=== PATIENT | male | born 1965 | race Caucasian/White ===

== ENCOUNTER 2020-04-25 15:20 | Inpatient (IN) | payer OTHER ==
[~2020-04-25] VITALS: Ht 180.3 cm; Wt 145.6 kg
[2020-04-25] MEDS ORDERED: SODIUM CHLORIDE 0.9% 1,000 ML IVB ONE (15:32)
[2020-04-25] MEDS ORDERED: KETOROLAC TROMETH 30 MG/ML 1ML VIAL IV ONE ×2 (15:45→17:45)
[2020-04-25] MEDS ORDERED: ONDANSETRON HCL 4 MG/2 ML VIAL IV ONE (15:45)
[2020-04-25] MEDS ORDERED: MORPHINE SULFATE 4 MG/ML SYR/VIAL IV ONE (15:45)
[2020-04-25 16:13] LABS: Basophils # (auto) 0.1 10 ^3/uL (0-0.2); Basophils % (auto) 0.8 % (0.0-2.0); Eosinophils # (auto) 0.1 10 ^3/uL (0-0.8); Eosinophils % (auto) 0.7 % (0.0-7.0); Hematocrit 44.9 % (41.0-53.0); Hemoglobin 15.1 g/dL (13.5-17.5); Lymphocytes # (auto) 1.3 10 ^3/uL (0.4-5.4); Lymphocytes % (auto) 10.9 % (10.0-50.0); Mean Corpuscular Hemoglobin 30.5 pg (28.0-32.0); Mean Corpuscular Hgb Conc. 33.6 g/dL (32.0-36.0); Mean Corpuscular Volume 90.9 fL (80.0-100.0); Monocytes # (auto) 0.8 10 ^3/uL (0-1.3); Monocytes % (auto) 6.4 % (0.0-12.0); Neutrophils % (auto) 81.2 % (37.0-80.0); Platelet Count (auto) 238 10^3/uL (140-450); Red Blood Cells 4.94 10^6/uL (4.5-5.90); Red Cell Distribution Width 12.6 % (11.8-14.3); White Blood Cell 12.3 10^3/uL (4.4-10.8)
[2020-04-25 16:30] LABS: Calcium 8.7 mg/dL (8.5-10.1); Potassium 3.6 mmol/L (3.5-5.1)
[2020-04-25 16:34] LABS: BUN/Creatinine Ratio 10.7; Bilirubin, Total 0.7 mg/dL (0.2-1.0); Total Protein 7.5 g/dL (6.4-8.2)
[2020-04-25 16:41] LABS: Urine Bacteria FEW /hpf (None Seen); Urine Blood 1+ /uL (Negative); Urine Mucus FEW (None Seen); Urine Specific Gravity 1.027 (1.001-1.035); Urine WBC 10 /hpf (0 - 3)
[2020-04-25] MEDS ORDERED: SODIUM CHLORIDE 0.9% 1,000 ML IV SCH (16:59)
[2020-04-25] MEDS ORDERED: LORazepam 0.5 MG TAB PO PRN (17:00)
[2020-04-25] MEDS ORDERED: MORPHINE SULF INJ 2 MG/ML SYRINGE 1ML IV PRN ×2 (17:00)
[2020-04-25] MEDS ORDERED: cefTRIAXone 1GM/50ML D5W 50 ML IV ONE (17:00)
[2020-04-25] MEDS ORDERED: ONDANSETRON HCL 4 MG/2 ML VIAL IV PRN (17:00)
[2020-04-25] MEDS ORDERED: ALUM & MAG HYDROX-SIMETH LIQ(MAALOX) 30 ML PO PRN (17:00)
[2020-04-25] MEDS ORDERED: NITROGLYCERIN 0.4 MG SL TAB SL PRN (17:00)
[2020-04-25] MEDS ORDERED: ACETAMINOPHEN 325 MG TAB PO PRN (17:00)
[2020-04-25] MEDS ORDERED: DOCUSATE SOD 100 MG CAP PO PRN (17:00)
[2020-04-25 17:59] LABS: Cholesterol 201 mg/dL (< 200); HDL Cholesterol 32 mg/dL (40-59); LDL Cholesterol 138 mg/dL (< 100); Triglycerides 266 mg/dL (< 150)
[2020-04-25 18:27] LABS: Alcohol, Urine < 3.0 mg/dL (0-10); Amphetamine Screen, Urine NEGATIVE (NEGATIVE); Barbiturate Scree,Urine NEGATIVE (NEGATIVE); Benzodiazephine Screen, Urine NEGATIVE (NEGATIVE); Cannabinoid Screen, Urine NEGATIVE (NEGATIVE); Cocaine Screen, Urine NEGATIVE (NEGATIVE); Opiate Scree,Urine NEGATIVE (NEGATIVE); Phencyclidine Screen, Urine NEGATIVE (NEGATIVE)
[2020-04-25] MEDS ORDERED: hydrALAZINE HCL 20 MG/ML VL IV PRN (22:15)
[2020-04-25] MEDS ORDERED: NIFEdipine ER 30 MG TAB PO ONE (22:15)
[2020-04-26] MEDS: SODIUM CHLORIDE 0.9% 1,000 ML IV SCH ×2 (00:13→13:17)
[2020-04-26] MEDS: KETOROLAC TROMETH 30 MG/ML 1ML VIAL IV PRN ×3 (01:14→13:42)
[2020-04-26] MEDS: HYDROcodone-ACET 5/325MG TAB PO PRN ×3 (01:20→23:19)
[2020-04-26 01:30] VITALS: BP 166/92
--- NOTE | 2020-04-26 01:30 | NUR ---
Telemetry admit from ER KI BARNETT admitted to Telemetry unit. Patient oriented to Eden Campos RN primary RN, unit, room, bed, and unit policies regarding patient care and visiting hours. Patient now on continuous telemetry monitoring, tele box #63 and telemetry reading on arrival to unit is NSR . Patient weighed by bedscale and encouraged to call if they need something. All questions and concerns addressed, patient verbalized understanding. Note: patient alert and oriented x 4, follows direction. on room air with even and unlabored respiration, no s/s od distress. Patient denies any problems urinating. Patient ambulates independently with stead gait. Bed in low locked position with side rails up x 2 and call light within reach. Instructed on POC and to call for assistance PRN. will continue care.
[2020-04-26 05:00] VITALS: BP 141/70
--- NOTE | 2020-04-26 07:01 | NUR ---
Closing note patient resting in bed with even and unlabored respirations, no s/s of distress. IVF infusing per orders. Bed in lowest locked position with side rails up x 2 and call light within reach.
--- NOTE | 2020-04-26 08:00 | NUR ---
Received pt resting in bed, call light within reach, pt reports pain on back and abdomen 03/18, pt was given pain medication by night auditor, pt was given heat pads, pt also reported mild nausea, pt refused nausea medication at this time, will continue to monitor pt.
[2020-04-26 09:00] VITALS: BP 145/81
[2020-04-26] MEDS: ASPirin 81 mg TAB PO SCH ×2 (10:00→10:12)
[2020-04-26] MEDS: CITALOPRAM HYDROBR 20 MG TAB PO SCH ×2 (10:00→10:13)
[2020-04-26] MEDS: PANTOPRAZOLE 40 MG/10 ML VIAL INJ IV SCH ×2 (10:00→10:12)
[2020-04-26] MEDS: ENOXAPARIN SOD 40 MG/0.4 ML SYRINGE SC SCH ×2 (10:00→10:14)
[2020-04-26] MEDS: CEFTRIAXONE SODIUM 2 GM in D5W 5% 50 ML IV SCH (10:12)
[2020-04-26] MEDS: NIFEdipine ER 30 MG TAB PO SCH (10:15)
[2020-04-26] MEDS ORDERED: MANNITOL FTV 25% 12.5 GM/50 ML 50 ML IV ONE (12:30)
[2020-04-26] MEDS ORDERED: SODIUM CHLORIDE 0.9% 1,000 ML IV ONE (12:30)
[2020-04-26 12:48] VITALS: BP 145/74
[2020-04-26 14:54] LABS: BUN/Creatinine Ratio 11.7; Calcium 8.4 mg/dL (8.5-10.1); Potassium 3.9 mmol/L (3.5-5.1)
--- NOTE | 2020-04-26 16:12 | NUR ---
assessment Patient is a 54 year old male who is alert and oriented. Patients cognitive abilities are intact. Prior to admission patient lived home with family and functioned independently. Patient informed me he is able to care for his own ADLs. Per patient he will return home to his prior living arrangements post discharge and family will transport him home. I informed patient of his consult for advanced directive. Patient informed me he never requested advanced directive. I did provide patient with directive. Patient accepted. I informed patient he has a right to speak to a social director regarding all care. I informed patient he has a right to participate in any and all discharge planning. Patient does not have a POA and advanced directive. I have offered patient information on POA and advanced directives. I informed the patient the advantages and benefits of having an Advanced Directive. Patient verbalized understanding and agreed to discharge plan. Addendum: 04/26/20 at 1618 by Ashlee Nicholas Amended: Links added.
[2020-04-26 16:58] VITALS: BP 129/72
[2020-04-26] MEDS: TAMSULOSIN HYDROCHLORIDE 0.4 MG CAP PO SCH (17:19)
--- NOTE | 2020-04-26 19:30 | NUR ---
Opening Shift Note Assumed care of patient, awake and alert. No S/S of distress/SOB or pain. Discussed Plan of care. Instructed on POC and to call for assist PRN, will continue to monitor for changes Q1hr and PRN. Patient verbalized understanding.
[2020-04-26 22:00] VITALS: BP 120/61
[2020-04-26] MEDS: ATORVASTATIN 20 MG TAB PO SCH (22:13)
[2020-04-27] MEDS: SODIUM CHLORIDE 0.9% 1,000 ML IV SCH (03:28)
[2020-04-27 05:00] VITALS: BP 131/73
[2020-04-27] MEDS: HYDROcodone-ACET 5/325MG TAB PO PRN (06:10)
--- NOTE | 2020-04-27 08:00 | NUR ---
Received pt resting in bed, call light within reach, pt reports mild rt lower abdominal and rt lower back pain 3/, pt refused pain medication at this time, will continue to monitor pt.
[2020-04-27 09:00] VITALS: BP 131/73
--- NOTE | 2020-04-27 09:00 | NUR ---
Consuelo Kelley, KEVIN / urology at bed side to see pt, discussed the plan of care with pt.
[2020-04-27] MEDS: PANTOPRAZOLE 40 MG/10 ML VIAL INJ IV SCH (09:43)
[2020-04-27] MEDS: CEFTRIAXONE SODIUM 2 GM in D5W 5% 50 ML IV SCH (09:44)
[2020-04-27] MEDS: ENOXAPARIN SOD 40 MG/0.4 ML SYRINGE SC SCH (09:44)
[2020-04-27] MEDS: CITALOPRAM HYDROBR 20 MG TAB PO SCH (09:44)
[2020-04-27] MEDS: ASPirin 81 mg TAB PO SCH (09:45)
[2020-04-27] MEDS: NIFEdipine ER 30 MG TAB PO SCH (09:45)
[2020-04-27 11:49] LABS: BUN/Creatinine Ratio 11.7; Calcium 8.3 mg/dL (8.5-10.1); Potassium 3.9 mmol/L (3.5-5.1)
[2020-04-27 12:52] VITALS: BP 116/69
--- NOTE | 2020-04-27 13:00 | NUR ---
Dr. Mccallum at bed side to see pt, doctor discussed the plan of care with pt.
[2020-04-27] MEDS: SOD CHL 0.9%/ KCL 20MEQ 1,000 ML IV SCH (14:42)
[2020-04-27 16:51] VITALS: BP 135/83
[2020-04-27] MEDS: TAMSULOSIN HYDROCHLORIDE 0.4 MG CAP PO SCH (17:29)
[2020-04-27 22:00] VITALS: BP 156/97
[2020-04-27] MEDS: ATORVASTATIN 20 MG TAB PO SCH (22:00)
[2020-04-28] MEDS: SOD CHL 0.9%/ KCL 20MEQ 1,000 ML IV SCH (02:35)
[2020-04-28 05:49] VITALS: BP 135/65
[2020-04-28 06:31] LABS: Calcium 8.6 mg/dL (8.5-10.1); Potassium 3.8 mmol/L (3.5-5.1)
[2020-04-28 06:33] LABS: BUN/Creatinine Ratio 12.1
[2020-04-28 07:14] LABS: INR 1.08 (0.9-1.15); Partial Thromboplastin Time 29.2 sec (23.0-31.2)
[2020-04-28 09:00] VITALS: BP 166/91
[2020-04-28] MEDS: PANTOPRAZOLE 40 MG/10 ML VIAL INJ IV SCH (09:14)
[2020-04-28] MEDS: CITALOPRAM HYDROBR 20 MG TAB PO SCH (09:15)
[2020-04-28] MEDS: ASPirin 81 mg TAB PO SCH (09:15)
[2020-04-28] MEDS: CEFTRIAXONE SODIUM 2 GM in D5W 5% 50 ML IV SCH (09:15)
[2020-04-28] MEDS: NIFEdipine ER 30 MG TAB PO SCH (09:16)
[2020-04-28] MEDS: ENOXAPARIN SOD 40 MG/0.4 ML SYRINGE SC SCH (09:16)
[2020-04-28] MEDS ORDERED: TAM04C PO (10:53)
[2020-04-28 12:03] VITALS: BP 142/80
--- NOTE | 2020-04-28 13:31 | NUR ---
Discharge instructions given as ordered. Encourage to follow up with Urologist Dr. Luis as instructed. New prescription given to pt. All questions and concerns addressed. Patient verbalized understanding. Medication reconciliation form completed and copy given to patient. IV removed with catheter intact, pressure dressing applied. Patient taken to vehicle via wheelchair with all personal belongings, accompanied by staff and family member. No distress noted at time of departure.
[2020-04-30] MEDS ORDERED: MORPHINE SULF INJ 2 MG/ML SYRINGE 1ML IV PRN (17:45)
== END 2020-04-28 13:38 | disposition home or self-care (01) | DRG 463 ==
LOC: ER 15:20 → EDBD 15:20 → TELE 15:21 → TELE-WESTW 04-26 01:26 → WEST WING 04-27 13:14
PROVIDERS: ADMIT Hospitalist; ATTEND Internal Medicine
DX: N13.6 Pyonephrosis (principal); E78.5 Hyperlipidemia, unspecified; N17.9 Acute kidney failure, unspecified; K21.9 Gastro-esophageal reflux disease without esophagitis; E66.01 Morbid (severe) obesity due to excess calories; K76.0 Fatty (change of) liver, not elsewhere classified; F32.9 Major depressive disorder, single episode, unspecified; I10 Essential (primary) hypertension; B96.89 Other specified bacterial agents as the cause of diseases classified elsewhere; Z68.41 Body mass index [BMI] 40.0-44.9, adult; Z80.9 Family history of malignant neoplasm, unspecified
CPT/HCPCS: 36415; 71045; 74018; 74176; 76775; 80048; 80053; 80061; 80307; 81001; 83036; 83690; 84484; 85025; 85610; 85730; 87040; 87086; 96361; 96374; 96375; C9113; G0378; J0696; J1885; J2405; J7060

== ENCOUNTER 2023-04-28 19:52 | Emergency (ER) | payer OTHER ==
[~2023-04-28] VITALS: Ht 177.8 cm; Wt 137.7 kg
[~2023-04-28 19:52] MED LIST: TAMS-35 PO
[2023-04-28 20:16] LABS: Basophils # (auto) 0.1 10 ^3/uL (0-0.2); Basophils % (auto) 0.6 % (0.0-2.0); Eosinophils # (auto) 0.4 10 ^3/uL (0-0.8); Eosinophils % (auto) 3.8 % (0.0-7.0); Hematocrit 48.6 % (41.0-53.0); Hemoglobin 16.9 g/dL (13.5-17.5); Lymphocytes # (auto) 1.8 10 ^3/uL (0.4-5.4); Lymphocytes % (auto) 19.3 % (10.0-50.0); Mean Corpuscular Hemoglobin 31.4 pg (28.0-32.0); Mean Corpuscular Hgb Conc. 34.9 g/dL (32.0-36.0); Mean Corpuscular Volume 89.9 fL (80.0-100.0); Monocytes # (auto) 0.7 10 ^3/uL (0-1.3); Neutrophils # (auto) 6.4 10 ^3/uL (1.6-8.6); Neutrophils % (auto) 68.3 % (37.0-80.0); Nucleated Red Blood Cells % 0.1 %; Red Cell Distribution Width 13.1 % (11.8-14.3); White Blood Cell 9.3 10^3/uL (4.4-10.8)
[2023-04-28 20:32] LABS: Albumin 4.2 g/dL (3.4-5.0); Calcium 9.1 mg/dL (8.5-10.1); INR 1.07 (0.9-1.15); Magnesium 2.7 mg/dL (1.6-2.6); Partial Thromboplastin Time 30.3 SEC (24.5-34.5); Potassium 3.9 mmol/L (3.5-5.1); Prothrombin Time 11.2 sec (9.3-11.8)
[2023-04-28 20:37] LABS: Bilirubin, Total 0.5 mg/dL (0.2-1.0); Total Protein 7.6 g/dL (6.4-8.2)
[2023-04-28 20:38] LABS: BUN/Creatinine Ratio 13.6 (10.0-20.0)
[2023-04-28] MEDS ORDERED: cloNIDine HCL 0.1 MG TAB PO ONE (23:45)
[2023-04-28 23:58] VITALS: BP 173/98; PULSE 67; RESP 18; TEMP 98; O2SAT 97
== END 2023-04-29 04:18 | disposition left against medical advice (07) ==
LOC: ER 19:53
DX: R07.9 Chest pain, unspecified (principal); R51.9 Headache, unspecified; R61 Generalized hyperhidrosis; I10 Essential (primary) hypertension
CPT/HCPCS: 36415; 71045; 80053; 83735; 83880; 84484; 85025; 85610; 85730; 93005

== ENCOUNTER 2025-01-21 20:07 | Inpatient (IN) | payer OTHER ==
[~2025-01-21] VITALS: Ht 177.8 cm; Wt 136.0 kg
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
[2025-01-21 22:14] LABS: Basophils # (auto) 0.1 10 ^3/uL (0-0.2); Basophils % (auto) 0.7 % (0.0-2.0); Eosinophils # (auto) 0.5 10 ^3/uL (0-0.8); Hematocrit 46.6 % (41.0-53.0); Hemoglobin 15.9 g/dL (13.5-17.5); Lymphocytes # (auto) 2.2 10 ^3/uL (0.4-5.4); Lymphocytes % (auto) 29.3 % (10.0-50.0); Mean Corpuscular Hemoglobin 31.1 pg (28.0-32.0); Mean Corpuscular Hgb Conc. 34.1 g/dL (32.0-36.0); Mean Corpuscular Volume 91.4 fL (80.0-100.0); Monocytes # (auto) 0.8 10 ^3/uL (0-1.3); Neutrophils # (auto) 4.1 10 ^3/uL (1.6-8.6); Nucleated Red Blood Cells % 0.1 %; Platelet Count (auto) 247 10^3/uL (140-450); Red Cell Distribution Width 13.2 % (11.8-14.3); White Blood Cell 7.7 10^3/uL (4.4-10.8)
[2025-01-21 22:30] LABS: Chloride 105 mmol/L (98-107); Sodium 142 mmol/L (136-145)
[2025-01-21 22:31] LABS: Anion Gap 9 (5-15); Calcium 9.9 mg/dL (8.7-10.4); Carbon Dioxide 28 mmol/L (20-31)
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
[2025-01-21 22:36] LABS: BUN/Creatinine Ratio 12.6 (10.0-20.0); Blood Urea Nitrogen 12 mg/dL (9-23)
[2025-01-21 22:39] LABS: Glucose 109 mg/dL (74-106)
[2025-01-21] MEDS: cloNIDine HCL 0.1 MG TAB PO ONE (22:39)
[2025-01-21] MEDS ORDERED: NITROGLYCERIN 0.4 MG SL TAB SL PRN (23:45)
[2025-01-21] MEDS ORDERED: ONDANSETRON HCL 4 MG/2 ML VIAL IV PRN (23:45)
[2025-01-21] MEDS ORDERED: ACETAMINOPHEN 325 MG TAB PO PRN (23:45)
[2025-01-21] MEDS ORDERED: MORPHINE SULFATE INJ 2 MG/ml SYRG IV PRN ×2 (23:45)
[2025-01-22] MEDS: SODIUM CHLORIDE 0.9% 1,000 ML IV SCH (00:35)
[2025-01-22] MEDS: amLODIPine BESYLATE 5 MG TAB PO ONE (00:45)
[2025-01-22] MEDS: SODIUM CHLORIDE 0.9% 500 ML IV ONE (01:17)
[2025-01-22 02:13] VITALS: BP 98/54; PULSE 54; RESP 16; RESP 17; TEMP 98.6; O2SAT 99
[2025-01-22 05:51] VITALS: BP 110/65; PULSE 74; RESP 18; TEMP 98.7; O2SAT 99
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
[2025-01-22 09:00] VITALS: BP 109/65; PULSE 54; RESP 13; TEMP 97.4; O2SAT 97
[2025-01-22 10:00] LABS: Urine Bacteria None Seen /hpf (None Seen)
[2025-01-22 10:35] LABS: Urine Blood Negative /uL (Negative); Urine Clarity Clear (Clear); Urine Color Yellow (Yellow); Urine Protein, UAD Negative (Negative); Urine Specific Gravity 1.023 (1.001-1.035); Urine Squamous Epithelial Cell None Seen /hpf (<5); Urine Urobilinogen 2 mg/dL (Negative); Urine WBC 1 /HPF (0-3)
[2025-01-22 10:44] LABS: Amphetamine Screen, Urine Neg (NEGATIVE); Barbiturate Scree,Urine Neg (NEGATIVE); Benzodiazephine Screen, Urine Neg (NEGATIVE); Cannabinoid Screen, Urine Neg (NEGATIVE); Cocaine Screen, Urine Neg (NEGATIVE); Opiate Scree,Urine Neg (NEGATIVE); Phencyclidine Screen, Urine Neg (NEGATIVE)
[2025-01-22] MEDS: CYCLOBENZAPRINE HCL 10 MG TAB PO ONE (11:08)
[2025-01-22] MEDS: IBUPROFEN 600 MG TAB PO ONE (11:09)
[2025-01-22 13:00] VITALS: BP 137/72; PULSE 50; RESP 12; TEMP 97.4; O2SAT 97
[2025-01-22 13:18] LABS: Basophils # (auto) 0.1 10 ^3/uL (0-0.2); Basophils % (auto) 0.8 % (0.0-2.0); Eosinophils # (auto) 0.3 10 ^3/uL (0-0.8); Eosinophils % (auto) 4.7 % (0.0-7.0); Hematocrit 44.5 % (41.0-53.0); Hemoglobin 15.2 g/dL (13.5-17.5); Lymphocytes # (auto) 2.2 10 ^3/uL (0.4-5.4); Lymphocytes % (auto) 31.5 % (10.0-50.0); Mean Corpuscular Hemoglobin 31.3 pg (28.0-32.0); Mean Corpuscular Hgb Conc. 34.1 g/dL (32.0-36.0); Monocytes # (auto) 0.5 10 ^3/uL (0-1.3); Monocytes % (auto) 7.8 % (0.0-12.0); Neutrophils # (auto) 3.8 10 ^3/uL (1.6-8.6); Neutrophils % (auto) 55.2 % (37.0-80.0); Nucleated Red Blood Cells % 0.1 %; Platelet Count (auto) 228 10^3/uL (140-450); Red Blood Cells 4.83 10^6/uL (4.5-5.90); Red Cell Distribution Width 13.2 % (11.8-14.3); White Blood Cell 6.9 10^3/uL (4.4-10.8)
[2025-01-22 13:37] LABS: Alanine Aminotransferase 33 U/L (7-40); Albumin 4.1 g/dL (3.2-4.8); Alkaline Phosphatase 56 U/L (46-116); Anion Gap 8 (5-15); Aspartate Aminotransferase 22 U/L (13-40); BUN/Creatinine Ratio 12.9 (10.0-20.0); Blood Urea Nitrogen 11 mg/dL (9-23); Calcium 9.5 mg/dL (8.7-10.4); Carbon Dioxide 26 mmol/L (20-31); Chloride 107 mmol/L (98-107); Glucose 91 mg/dL (74-106); Sodium 141 mmol/L (136-145); Total Protein 6.8 g/dL (5.7-8.2)
[2025-01-22 13:38] LABS: Bilirubin, Total 0.8 mg/dL (0.2-1.0)
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
[2025-01-22] MEDS ORDERED: CYCL-839 PO (15:52)
[2025-01-22] MEDS ORDERED: IBUP-1454 PO (15:52)
[2025-01-22] MEDS ORDERED: LISI-275 PO (15:52)
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
--- NOTE | 2025-01-25 12:53 | ECG ---
[facility] Test Date: 2025-01-21 Test Time: 21:56:29 Pat Name: KI BARNETT Department: ED Room: [address] [place] [address] Gender: M Evp: ED : 1965 Requested By: CAROLINE BLOUNT Order Number: [id number] Reading MD: Measurements Intervals [place] Rate: 77 P: 34 [place]: 136 QRS: 16 QRSD: 77 T: 57 QT: 392 QTc: 444 Interpretive Statements Sinus rhythm Please click the below link to view image of tracing.
== END 2025-01-22 16:05 | disposition home or self-care (01) | DRG 347 ==
LOC: ER 20:07 → OVERFLOW 23:41
PROVIDERS: ADMIT Student in an Organized Health Care Education/Training Program; ATTEND Student in an Organized Health Care Education/Training Program
DX: S16.1XXA Strain of muscle, fascia and tendon at neck level, initial encounter (principal); E66.01 Morbid (severe) obesity due to excess calories; I10 Essential (primary) hypertension; S20.213A Contusion of bilateral front wall of thorax, initial encounter; S39.012A Strain of muscle, fascia and tendon of lower back, initial encounter; I16.0 Hypertensive urgency; Z68.41 Body mass index [BMI] 40.0-44.9, adult; V89.2XXA Person injured in unspecified motor-vehicle accident, traffic, initial encounter; Y92.410 Unspecified street and highway as the place of occurrence of the external cause; Y93.89 Activity, other specified; Y92.89 Other specified places as the place of occurrence of the external cause; Y99.8 Other external cause status
CPT/HCPCS: 36415; 70450; 70551; 71046; 72100; 72125; 80048; 80053; 80307; 81001; 84443; 84484; 85025; 93005; G0378